=== PATIENT | female | born 1970 | race Caucasian/White ===

== ENCOUNTER 2016-08-08 07:53 | Day surgery (SDC) | payer MEDICAID ==
[~2016-08-08] VITALS: Ht 149.9 cm; Wt 48.0 kg
[2016-08-08] VITALS (10 sets, daily range): BP systolic 99–129; BP diastolic 56–70; PULSE 62–86; RESP 14–21; Ht 149.9 cm; Wt 48.0 kg
[2016-08-08] MEDS ORDERED: SOD CHLORIDE 0.9% 1,000 ML IV SCH (08:30)
[2016-08-08] MEDS ORDERED: POLYMYXIN/BACITRACIN 1L IRRIG IRR ONE (08:30)
[2016-08-08] MEDS ORDERED: CEFAZOLIN 1 GM/50 ML (PMX) 50 ML IVPB ONE ×2 (08:30→08:34)
[2016-08-08] MEDS ORDERED: LIDOCAINE 1%/EPI 30 ML INJ ONE (08:31)
[2016-08-08] MEDS ORDERED: HEPARIN 1000 UNITS/ML 10 ML INJ ONE (08:33)
[2016-08-08] MEDS ORDERED: MIDAZOLAM 1 MG/ML 2 ML INJ ONE (08:49)
[2016-08-08] MEDS ORDERED: DIPHENHYDRAMINE 50 MG INJ ONE (08:49)
[2016-08-08] MEDS ORDERED: FENTAnyl 50 MCG/ML VIAL ONE (08:49)
--- NOTE | 2016-08-08 11:29 | RADRPT ---
PROCEDURE: Ultrasound guidance for placement of needle in right internal jugular vein. CLINICAL INDICATION: Venous access. TECHNIQUE: Prior to the procedure, informed consent was obtained. Risks including bleeding, infection, and pneu mothorax were explained to the patient. The patient understood and was willing to proceed. A procedu ral pause was performed. The patient's name, date of , and procedure to be performed were verif ied. The central line was inserted with all elements of maximal sterile barrier technique. All of th e following were used: head covering, facial mask, sterile gown, sterile gloves, a large sterile she et, hand hygiene, and 2% chlorhexidine for cutaneous antisepsis. The right neck and anterior/super ior chest wall was prepped and draped in usual sterile fashion. Limited sonography of the right neck was then performed. Noted is a patent right internal jugular ve in. Ultrasound images were recorded and stored in the patient's medical record. Following the local injection of Xylocaine, the right internal jugular vein was punctured under sono graphic guidance with a 20-gauge needle through which a 0.018 inch floppy tip guidewire was advanced into the superior vena cava. The patient tolerated the procedure well. The remainder of the proce dure was performed and dictated under separate cover. COMPARISON: None. FINDINGS: The ultrasound images demonstrate a patent right internal jugular vein. The subsequent images demon strate the needle entering the right internal jugular vein. IMPRESSION: 1. Ultrasound guidance for a needle placement in right internal jugular vein. RPTAT: QQ .Willian Hill MD, Date Time Electronically viewed and signed by .Willian Hill MD, on 08/08/2016 11:29 .R/
--- NOTE | 2016-08-08 11:31 | RADRPT ---
PROCEDURE: FLUOROSCOPIC AND ULTRASONOGRAPHIC-GUIDED PLACEMENT OF RIGHT CHEST PORT. CLINICAL INDICATION: History of left breast cancer. Venous access for chemotherapy. TECHNIQUE: INTRAPROCEDURE MEDICATIONS: PB antibiotic solution 40 cc applied topically. 1 gram Ancef intravenous ly, intra-op. IV Versed and Fentanyl per protocol. Informed consent was obtained. The procedure, risks, benefits, complications and alternatives were explained to the patient. Risks including bleeding, infection, and pneumothorax were explained. The patient understood and was willing to proceed. A procedural pause was performed. The patient's name, date of , and procedure to be performed w ere verified. The central line was inserted with all elements of maximal sterile barrier technique. All of the fol lowing were used: head covering, facial mask, sterile gown, sterile gloves, a large sterile sheet, h and hygiene, and 2% chlorhexidine for cutaneous antisepsis. The right neck and anterior/superior chest wall were prepped and draped in usual sterile fashion. Limited sonography of the right neck was then performed. Noted is a patent right internal jugular ve in. Following the local injection of 1% lidocaine, the right internal jugular vein was punctured under s onographic guidance with a 20-gauge needle through which a 0.018 inch floppy tip guidewire was advan dianne into the superior vena cava with fluoroscopic guidance. The tract was dilated to 5 Uzbek and the wire was then replaced with a 0.035 in Amplatz guidewire. Serial dilatation was then performed and a 7 Uzbek peel away sheath was introduced. A site just inferior to the clavicle in the superior anterior right chest wall was localized. One pe rcent lidocaine was used as local anesthesia. A transverse 2.5 cm incision was made utilizing a 15 b lade scalpel. Utilizing blunt dissection a subcutaneous pocket was created inferior to the incision. The cavity was flushed with approximately 40 cc of PB antibiotic solution. The catheter was tunneled underneath the skin from the newly created pocket to the puncture site in the neck. The central line catheter was pulled through the tract. The catheter was then advanced thr ough the sheath until the tip was positioned in the right atrium. The peel-away sheath was removed. The catheter was flushed and clamped. The 6.6 Uzbek catheter was then connected to the Angiodynamics power port. The port was then placed into the pocket. Prior to closing the instrument and sponge count was verified and was correct. The subcutaneous tissue was closed with 3-0 Vicryl interrupted suture. The skin at the site of the pock et and in the neck was closed with 4-0 Vicryl suture in a running subcuticular technique. The port w as flushed with 1500 units of heparin in 1.5 cc utilizing a Chapa needle. The needle was removed. A dressing was applied. The patient tolerated procedure well. COMPARISON: None. FINDINGS: Ultrasound images were recorded and stored in the patient's medical record. Final radiographic images demonstrate the tip of the catheter in the upper right atrium. A total of 0.1 minutes of fluoroscopy time was used. 7 images of the chest were obtained during the procedure. The ultrasound images demonstrate the needle entering the internal jugular vein. IMPRESSION: 1. Successful ultrasonographic and fluoroscopic guided placement of right chest power port. RPTAT: QQ .Willian Hill MD, MD Date Time Electronically viewed and signed by .Willian Hill MD, on 08/08/2016 11:31 .R/
== END 2016-08-08 12:33 | disposition home or self-care (01) ==
LOC: SDS 07:53
PROVIDERS: ATTEND Internal Medicine Hematology & Oncology
DX: C50.912 Malignant neoplasm of unspecified site of left female breast (principal)
CPT/HCPCS: 36561; 76942; C1788; J0690; J1200; J1644; J2250; J3010; Z7610

== ENCOUNTER → 2016-08-20 | Outpatient (CLI) | payer MEDICAID ==
--- NOTE | 2016-08-20 15:36 | RADRPT ---
Echocardiogram Report Patient Name: RAQUEL LIM Gender: Female Date: 1970 Study Date: 20-Aug-2016 Director Print: Jordi Camarillo RDCS Location: OP Ref. Physician: MINESH GARCIA Quality: Good Procedures: Transthoracic echocardiogram with complete 2D, M-Mode, and doppler examination. Indications: Evaluate Left Ventricular function. 2D/M Mode Doppler Measurement Value Normal Ranges Measurement Value Normal Ranges LVIDd 2D 4.0 3.5 - 5.6 cm AV Peak Cyrus 1.1 m/sec LVIDs 2D 1.9 2.1 - 4.1 cm AV Peak PG 4.4 mmHg LVPWd 2D 0.8 0.6 - 1.1 cm LVOT Peak Cyrus 0.9 m/sec IVSd 2D 0.8 0.6 - 1.1 cm LVOT Peak PG 3.3 mmHg AoR Diam 2D 2.1 2.0 - 3.7 cm MV E Peak Cyrus 0.5 m/sec EDV 2D 68.7 cm3 MV A Peak Cyrus 0.6 m/sec ESV 2D 7.2 cm3 MV E/A 0.8 LA Dimen 2D 2.9 2.3 - 4.0 cm MV Decel Time 192 msec MV Decel [place] 2 MV E/A 0.8 Findings Left Ventricle: Normal left ventricular systolic function. Normal left ventricular cavity size. Normal left ventricular wall thickness. Ejection fraction is visually estimated at 60 %. Right Ventricle: Normal right ventricular size. Normal right ventricular systolic function. Left Atrium: The left atrium is normal in size. Right Atrium: The right atrium is normal in size. Mitral Valve: Normal appearance and function of the mitral valve with trace physiologic regurgitation. Aortic Valve: Normal appearance of the aortic valve. No significant aortic stenosis or insufficiency. Tricuspid Valve: Normal appearance and function of the tricuspid valve with trace physiologic regurgitation. Pulmonic Valve: Normal pulmonic valve appearance. Pericardium: Normal pericardium with no significant pericardial effusion. Aorta: Normal aortic root. IVC: Normal size and normal respiratory collapse consistent with normal right atrial pressure. Conclusions 1.Normal left ventricular systolic function. Normal left ventricular cavity size. Normal left ventricular wall thickness. Ejection fraction is visually estimated at 60 %. 2.The left atrium is normal in size. 3.Normal appearance and function of the mitral valve with trace physiologic regurgitation. 4.Normal appearance of the aortic valve. No significant aortic stenosis or insufficiency. 5.Normal appearance and function of the tricuspid valve with trace physiologic regurgitation. Electronically Signed By: Bob Jovel 20-Aug-2016 15:35:06 -0800 Patient Name: RAQUEL LIM Study Date: 20-Aug-2016 [id number]
== END | disposition home or self-care (01) ==
LOC: EKG 09:38
PROVIDERS: ATTEND Internal Medicine Hematology & Oncology
DX: C50.919 Malignant neoplasm of unspecified site of unspecified female breast (principal)
CPT/HCPCS: 93306

== ENCOUNTER 2017-02-03 10:30 | Inpatient (IN) | payer BC, MEDICAID ==
[~2017-02-03] VITALS: Ht 149.9 cm; Wt 46.0 kg
[2017-02-06 14:23] VITALS: BMI 21.8
[2017-02-07] VITALS (10 sets, daily range): BP systolic 119–140; BP diastolic 70–93; PULSE 74–92; RESP 11–20; Ht 149.9 cm; Wt 46.0 kg
[2017-02-07] MEDS ORDERED: CEFAZOLIN 1 GM INJ ONE (07:00)
[2017-02-07] MEDS ORDERED: SOD CHLORIDE 0.9% 1,000 ML IV SCH (07:00)
[2017-02-07] MEDS ORDERED: CEFAZOLIN 2 GM/50 ML (PMX) 50 ML IVPB SCH (07:00)
[2017-02-07 13:30] LABS: EOSINOPHILS # 0.1 10^3/ul (0.0-0.5); EOSINOPHILS % 1.6 % (0.0-7.0); HEMATOCRIT 35.2 % (37.0-47.0); HEMOGLOBIN 11.7 g/dl (12.0-16.0); LYMPHOCYTES # 1.2 10^3/ul (0.8-2.9); LYMPHOCYTES % 38.2 % (15.0-51.0); MEAN CORPUSCULAR HEMOGLOBIN 28.6 pg (29.0-33.0); MEAN CORPUSCULAR HGB CONC 33.2 g/dl (32.0-37.0); MEAN CORPUSCULAR VOLUME 86.1 fl (82.0-101.0); MEAN PLATELET VOLUME 9.3 fl (7.4-10.4); MONOCYTE # 0.2 10^3/ul (0.3-0.9); NEUTROPHILS % 51.9 % (39.0-77.0); PLATELET COUNT 276 10^3/UL (140-415); RED BLOOD COUNT 4.09 10^6/ul (4.20-5.40); RED CELL DISTRIBUTION WIDTH 18.6 % (11.5-14.5)
[2017-02-07 13:31] LABS: HOLD TRANSMISSIONS 1
[2017-02-07 13:32] LABS: WHITE BLOOD COUNT 3.1 10^3/ul (4.8-10.8)
[2017-02-07 13:46] LABS: INR 0.97; PROTIME 12.9 Sec (12.2-14.2)
[2017-02-07 13:47] LABS: PARTIAL THROMBOPLASTIN TIME 36.3 Sec (25.0-35.0)
[2017-02-07 13:51] LABS: ALBUMIN 4.5 g/dl (3.3-4.9); ALBUMIN/GLOBULIN RATIO 1.32; BILIRUBIN,INDIRECT 0.3 mg/dl (0-1.1); BILIRUBIN,TOTAL 0.3 mg/dl (0.2-1.3); TOTAL PROTEIN 7.9 g/dl (6.1-8.1)
[2017-02-07] MEDS ORDERED: LIDOCAINE 2% (SDV) 5 ML INJ ONE (14:09)
[2017-02-07] MEDS ORDERED: ISOSULFAN BLUE 1% 5 ML INJ SC ONE (14:09)
[2017-02-07] MEDS ORDERED: PROPOFOL 60 ML ONE (14:09)
[2017-02-07] MEDS ORDERED: ACETAMINOPHEN 1000MG/100ML IV 100 ML ONE (14:10)
[2017-02-07] MEDS ORDERED: FENTAnyl 50 MCG/ML VIAL ONE ×2 (14:10→15:08)
[2017-02-07 14:15] LABS: CALCIUM 10.1 mg/dl (8.4-10.2); CREATININE 0.55 mg/dl (0.44-1.00); POTASSIUM 3.7 mmol/L (3.5-5.1)
[2017-02-07] MEDS ORDERED: EPHEDrine SULFATE 50 MG/5 ML SYG ONE (14:28)
[2017-02-07] MEDS ORDERED: MEPERIDINE 25 MG INJ IV PRN (14:30)
[2017-02-07] MEDS ORDERED: hydrALAzine 20 MG INJ IV PRN (14:30)
[2017-02-07] MEDS ORDERED: LABETALOL HCL 20MG INJ IV PRN (14:30)
[2017-02-07] MEDS ORDERED: KETOROLAC 30 MG INJ IV PRN (14:30)
[2017-02-07] MEDS ORDERED: ONDANSETRON 4 MG INJ IV PRN ×2 (14:30→16:00)
[2017-02-07] MEDS ORDERED: DIPHENHYDRAMINE 50 MG INJ IV PRN (14:30)
[2017-02-07] MEDS ORDERED: EPHEDrine SULFATE 50 MG/5 ML SYG IV PRN (14:30)
[2017-02-07] MEDS ORDERED: HYDROmorphONE (0.2 MG/ML) 10ML SYG IV PRN ×3 (14:30)
[2017-02-07] MEDS ORDERED: OXYCODONE/ACETAMINOPHEN (5/325) TAB PO PRN ×2 (14:30)
[2017-02-07] MEDS ORDERED: FENTAnyl 50 MCG/ML VIAL IV PRN ×3 (14:30)
[2017-02-07] MEDS ORDERED: PROPOFOL 20 ML ONE (15:11)
[2017-02-07] MEDS ORDERED: DEXAMETHASONE 4 MG/ML 1 ML INJ ONE (15:11)
[2017-02-07] MEDS ORDERED: ONDANSETRON 4 MG INJ ONE (15:12)
--- NOTE | 2017-02-07 15:59 | OPR ---
Date/Time of Note Date/Time of Note DATE: 02/07/17 TIME: 15:56 Operative Report Preoperative Diagnosis Invasive cancer left breast Postoperative Diagnosis Same Operation/Procedure Performed Needle directed left partial mastectomy and axillary dissection utilizing sentinel lymph node technique Surgeon: MONTY THIBODEAUX MD architectural administrative assistant: SEBASTIAN HAIRSTON MD Second assist: LINCOLN HERBERT MD Anesthesia Type: general Estimated Blood Loss: 10 - 50 ml's Specimens Left breast specimen and sentinel lymph node Grafts/Implants: none Complications: no MONTY THIBODEAUX MD Feb 07, 2017 15:59
[2017-02-07] MEDS ORDERED: morphine 2 MG INJ IV PRN (16:00)
[2017-02-07] MEDS: D5W-0.45 NACL + KCL 20 MEQ 1,000 ML IV SCH ×2 (17:35→23:59)
--- NOTE | 2017-02-07 19:32 | OPR ---
DATE OF OPERATION: 02/07/2017 PREOPERATIVE DIAGNOSIS: Invasive cancer, left breast. POSTOPERATIVE DIAGNOSIS: Invasive cancer, left breast. PROCEDURE PERFORMED: Needle-directed left partial mastectomy and axillary dissection utilizing sentinel lymph node technique. ANESTHESIA: General. ANESTHESIOLOGIST: Dr. Borges. SURGEON: Efren Dye MD ASSISTANT RESEARCH SCIENTIST: Dr. Gonzales and . INDICATIONS: The patient is a 45-year-old female, who underwent screening mammography. She was found to have a 3 cm lesion in her left breast. Workup including a core biopsy revealed invasive cancer. The patient was then counseled as to the need for surgery. She elected to undergo breast conservation surgery with a left needle-directed partial mastectomy and axillary dissection utilizing sentinel lymph node technique. DESCRIPTION OF PROCEDURE: On the morning of surgery, patient presented to [facility], where she underwent localization lesion performed by attending radiologist, Dr. Cedillo . Subsequently she was brought to the operating theater, placed under general anesthesia. The left breast and axillary region was prepped and draped in the usual sterile fashion. Approximately 3 to 4 cm incision was made in the left axillary hairline. Subcutaneous tissue was dissected with cautery down through the clavipectoral fascia. A dye stained lymphatic was identified and traced to a sentinel node. The sentinel node was the partially stained blue. This node was elevated and resected using the LigaSure device. It was sent for intraoperative analysis performed by attending pathologist, Dr. Gonzales. The node was negative for metastatic disease. Therefore, no further nodes were taken. The wound was irrigated, minimal bleeding was controlled with cautery, and the skin was reapproximated with 4-0 Vicryl suture in subcuticular fashion. Attention was then directed to performing the partial mastectomy. A curvilinear incision was made in the upper outer quadrant of the left breast in the region of the previously placed localization wire. Subcutaneous tissue was dissected with cautery. The skin edges were then elevated with skin hooks and wide circumferential dissection of the tissue associated with the wire then took place taking great care to ensure adequate margin. SPECIMEN: The specimen was elevated, oriented, transected, and sent for radiographic confirmation of capture. Capture was confirmed. It was then sent for permanent pathologic analysis. The wound was irrigated. Minimal bleeding was controlled with cautery and the skin was then reapproximated with 4-0 Vicryl suture in subcuticular fashion. Benzoin and Steri-Strips were then applied to both incisions. The patient tolerated the procedure well. ESTIMATED BLOOD LOSS: Approximately 30 mL. There were no complications and the patient was transported in stable condition to recovery room where circumferential compression dressing was applied. Dictated By: Efren Dye MD /rick/bree /Document#: [id number]
--- NOTE | 2017-02-08 01:12 | HP ---
DATE OF ADMISSION: 02/07/2017 CHIEF COMPLAINT/HISTORY: The patient is a 46-year-old female who has history of cancer, left breast. Patient prior to that had been diagnosed with left breast cancer a few months ago. The patient underwent core biopsy, which revealed invasive cancer. The patient underwent neoadjuvant chemotherapy and subsequently was admitted today for a left partial mastectomy. The patient had significant postoperative pain. Therefore, patient is being admitted for further evaluation and management. The patient did not have any nausea, vomiting. No reported abdominal pain. No reported any previous history of diabetes, hypertension or CHF. Patient denied any prior history of chest pain, shortness of breath, abdominal pain or leg edema. No history of numbness, tingling of any extremities. The rest of the review of systems is unremarkable. PAST SURGICAL HISTORY: The patient is status post Port-A-Cath placement for chemotherapy. SOCIAL HISTORY: No smoking. No alcohol. ALLERGIES: NONE. FAMILY HISTORY: The patient's grandmother had breast cancer. PHYSICAL EXAMINATION: GENERAL APPEARANCE: Patient is conscious, awake, alert. VITAL SIGNS: Temperature 98.2, pulse 75, respirations 17, blood pressure 120/72, O2 sat 99 on room air. HEENT: Conjunctivae normal. Oropharynx clear. NECK: Supple. No JVD or thyromegaly. CHEST: Fairly clear. CVS: S1, S2 normal. No murmur, gallop, or rub. ABDOMEN: Soft, nondistended,nontender. Bowel sounds present. EXTREMITIES: No leg edema. NEUROLOGIC: Patient is awake, alert, with no gross focal deficits. LABS: Prior to admission, WBC 3.1, hemoglobin 11.7, platelet 276. Chemistry: Sodium 144, potassium 3.7, BUN 11, creatinine 0.5, glucose 79. Liver enzymes normal. IMPRESSION: Invasive cancer, left breast, status post new adjuvant chemotherapy. Today underwent left partial mastectomy. PLAN: Patient will be admitted on medical floor. Patient will be started on clear liquid diet, which will be advanced as tolerated. The patient will be given IV fluids and will be given IV Tylenol, Percocet and IV morphine for pain control depending on severity. Will use SCD for DVT prophylaxis. If patient continues to do well, she will be discharged home tomorrow. Dictated By: Anand Lujan MD /rick/bhargav /Document#: [id number]
[2017-02-08] MEDS: D5W-0.45 NACL + KCL 20 MEQ 1,000 ML IV SCH (01:42)
[2017-02-08] MEDS: ACETAMINOPHEN 1000MG/100ML IV 100 ML IVPB PRN ×2 (01:50→07:48)
[2017-02-08 02:25] VITALS: BP 101/62; RESP 18
[2017-02-08 08:22] VITALS: BP 97/55; RESP 14
--- NOTE | 2017-02-08 09:52 | PN ---
Date/Time of Note Date/Time of Note DATE: 02/08/17 TIME: 09:51 Assessment/Plan VTE Prophylaxis VTE Prophylaxis Intervention: other Lines/Catheters IV [facility] Type ([facility] Peripheral IV Assessment/Plan Chief Complaint/Hosp Course Invasive cancer, left breast, status post new adjuvant chemotherapy. Today underwent left partial mastectomy. Problems: Subjective 24 Hr Interval Summary Free Text/Dictation Patient is doing well Exam/Review of Systems Vital Signs Vitals Vital Signs Date Time Temp Pulse Resp B/P Pulse Ox O2 Delivery O2 Flow Rate FiO2 02/08/17 08:22 98.1 72 14 97/55 100 02/07/17 18:30 Room Air Intake and Output 02/07/17 02/07/17 02/08/17 15:00 23:00 07:00 Intake Total 1270 ml 1740 ml Output Total 10 ml 4 ml Balance 1260 ml 1736 ml Exam Constitutional: well developed Head: atraumatic, normocephalic Neck: supple Respiratory: clear to auscultation Cardiovascular: regular rate and rhythm Gastrointestinal: non-tender, soft Extremities: normal pulses Results Result Diagram: 02/07/17 1220 02/07/17 1220 Results 24 hrs Laboratory Tests Test 02/07/17 12:20 White Blood Count 3.1 L Red Blood Count 4.09 L Hemoglobin 11.7 L Hematocrit 35.2 L Mean Corpuscular Volume 86.1 Mean Corpuscular Hemoglobin 28.6 L Mean Corpuscular Hemoglobin Concent 33.2 Red Cell Distribution Width 18.6 H Platelet Count 276 Mean Platelet Volume 9.3 Neutrophils % 51.9 Lymphocytes % 38.2 Monocytes % 7.0 Eosinophils % 1.6 Basophils % 1.0 Nucleated Red Blood Cells % 0.0 Neutrophils # (Manual) 2 Lymphocytes # 1.2 Monocytes # 0.2 L Eosinophils # 0.1 Basophils # 0.0 Nucleated Red Blood Cells # 0.0 CBC Results Faxed/Phoned 1 *H Prothrombin Time 12.9 Prothrombin Time Ratio 1.0 INR International Normalized Ratio 0.97 Activated Partial Thromboplast Time 36.3 H Sodium Level 144 Potassium Level 3.7 Chloride Level 100 Carbon Dioxide Level 28 Anion Gap 20 H Blood Urea Nitrogen 11 Creatinine 0.55 Glucose Level 79 Calcium Level 10.1 Total Bilirubin 0.3 Direct Bilirubin 0.00 Indirect Bilirubin 0.3 Aspartate Amino Transf (AST/SGOT) 28 Alanine Aminotransferase (ALT/SGPT) 34 Alkaline Phosphatase 84 Total Protein 7.9 Albumin 4.5 Globulin 3.40 H Albumin/Globulin Ratio 1.32 Medications Medications Current Medications Ondansetron HCl 4 mg 4 mg Q6H PRN IV NAUSEA AND/OR VOMITING; Start 02/07/17 at 16:00 Potassium Chloride/Dextrose/ Sod Cl (D5-1/2ns + KCl 20 Meq) 1,000 ml @ 125 mls/ hr Q8H IV Last administered on 02/08/17 01:42; Admin Dose 125 MLS/HR; Start at 15:59 Morphine Sulfate 2 mg 2 mg Q1H PRN IV PAIN; Start 02/07/17 at 16:00 Acetaminophen (Ofirmev 1000mg/ 100ml Iv) 100 ml @ 400 mls/hr Q6H PRN IVPB PAIN Last administered on 02/08/17 07:48; Admin Dose 400 MLS/HR; Start at 16:00 TANVIR DOMINGO Feb 08, 2017 09:52
[2017-02-08 14:00] VITALS: BP 113/61; RESP 14
--- NOTE | 2017-02-08 19:34 | PN ---
DATE: 02/08/2017 Today is postop day number 1, February 08, 2017. SUBJECTIVE: No complaints. She feels good. Minimal pain. OBJECTIVE: VITAL SIGNS: Stable. Temperature 98, heart rate 75, respirations 14, blood pressure 113/61, saturation 100% on room air. EXTREMITIES: Moves her left upper extremity completely. No numbness. No pain. Dressing is intact. It is not too tight. ASSESSMENT AND PLAN: Postoperative day 1, . The patient is doing fine. The patient can be discharged home to be followed by Dr. Dye in the office. Instruction was given. The patient is to call Dr. Dye' office on Friday for an appointment. Dictated By: Charles Beatty MD /rick/rosalba /Document#: [id number] ANJELICA
== END 2017-02-08 16:15 | disposition home or self-care (01) | DRG 581 ==
LOC: REC 02-07 10:12 → EDSTATUS 02-07 10:30 → MS1 02-07 17:23
PROVIDERS: ADMIT Surgery Surgical Oncology; ATTEND Surgery Surgical Oncology
PROC: 07B90ZX Excision of Left Internal Mammary Lymphatic, Open Approach, Diagnostic (ICD-10-PCS; 2017-02-07)
PROC: 0HBU0ZZ Excision of Left Breast, Open Approach (ICD-10-PCS; principal; 2017-02-07 13:00)
DX: C50.912 Malignant neoplasm of unspecified site of left female breast (principal); Z80.3 Family history of malignant neoplasm of breast; Z92.21 Personal history of antineoplastic chemotherapy
CPT/HCPCS: 80053; 84703; 85025; 85610; 85730; 88307; 88331; J0131; J0690; J1100; J2175; J2405; J3010; J3480; Q9968